=== PATIENT | female | born 2000 | race Caucasian/White ===

== ENCOUNTER 2023-08-23 15:17 | Emergency (ER) | payer BC, SELFPAY ==
[2023-08-23 15:22] VITALS: BP 119/77
[2023-08-23 15:41] LABS: % Basophils 0.4 % (0-2); % Immature Granulocytes 0.4 % (0-0.5); % Lymphocytes 9.3 % (20.5-51.1); % Monocytes 2.8 % (1.7-9.3); % Neutrophils 87.1 % (42.2-75.2); Absolute Monocytes 0.3 10^3/uL (0.1-0.6); Absolute Neutrophils 9.4 10^3/uL (1.4-6.5); Hematocrit 31.1 % (37.0-47.0); Hemoglobin 9.5 g/dL (12.0-16.0); Mean Corp Hgb Conc. 30.5 g/dL (33.0-37.0); Mean Corpuscular Hgb 23.1 pg (27.0-31.0); Mean Corpuscular Volume 75.5 fL (81.0-99.0); Mean Platelet Volume 9.4 fL (7.4-10.4); Nucleated Red Blood Cells % 0 %; Platelet Count 390 10^3/uL (130-400); Red Blood Cell Count 4.12 10^6/uL (4.20-5.40); Red Cell Dist. Width 14.8 % (11.5-14.5); White Blood Cell Count 10.7 10^3/uL (4.8-10.8)
[2023-08-23 15:53] LABS: HCG, Serum Qualitative Screen Negative
[2023-08-23 15:56] LABS: ALT (SGPT) 53 U/L (0-35); AST (SGOT) 50 U/L (14-36); Albumin 3.8 g/dl (3.5-5.0); Alkaline Phosphatase 92 U/L (38-126); Blood Urea Nitrogen 12 mg/dl (7-17); Calcium 8.6 mg/dl (8.4-10.2); Carbon Dioxide 24 mmol/L (22-30); Chloride 107 mmol/L (98-107); Glucose 113 mg/dl (70-99); Lipase 68 U/L (23-300); Potassium 3.9 mmol/L (3.5-5.1); Sodium 135 mmol/L (135-145); Total Bilirubin 0.4 mg/dl (0.2-1.3); Total Protein 6.3 g/dl (6.3-8.2); eGFR > 60.00
[2023-08-23 16:02] LABS: Urine Albumin Negative (Neg - Trace); Urine Bilirubin Negative (Negative); Urine Character Clear (Clear); Urine Color Yellow; Urine Glucose Negative (Negative); Urine Ketone Negative (Negative); Urine Leukocyte Negative (Negative); Urine Nitrite Negative (Negative); Urine Occult Blood 3+ (Negative); Urine Urobilinogen Negative (Neg - 1+)
[2023-08-23 16:14] LABS: Urine White Cell None Seen /HPF (0-5)
--- NOTE | 2023-08-23 19:09 | ED.GENMED ---
History of Present Illness
General
Chief Complaint: Abdominal Symptoms
Time Seen by Provider: 08/23/23 18:43
Travel History
Have you had any contact with someone who has COVID-19?: No
Do you have any symptoms of coronavirus? Fever > 100 degrees, chills, cough, shortness of breath, sore throat, loss of taste or smell, muscle aches, or headache?: No
History of Present Illness
History of Present Illness:
HPI: The patient awoke this morning and shortly thereafter around 9 AM had severe abdominal pain. She states this is associated with her periods. She has had several episodes in the past similar to this. She does have episodes of vomiting and
diarrhea when she gets these episodes. The pain was so severe earlier she nearly passed out and broke onto a sweat. She had an episode when she was in [place] and went to an ED but there was no diagnostic imaging at that time. She reports
that her mother has a history of endometriosis.
EXAM:
GENERAL: The patient appears to be somewhat
HEENT: Moist oral mucosa
CARDIOVASCULAR: No murmurs, normal heart rate and rhythm, No chest wall tenderness
PULMONARY: No respiratory distress, breath sounds are clear and equal
ABDOMEN: Soft with no peritoneal signs, mild lower tenderness
NEUROLOGIC: Excellent strength all extremities, no coordination deficits
PSYCHIATRIC: Appropriate mental status, normal insight and judgement
EXTREMITIES: Nontender, no edema, moves all extremities equally
SKIN: No rash, no lesions
ED COURSE:
645 PM: I initially evaluated patient
NUMBER AND COMPLEXITY OF PROBLEMS ADDRESSED AT THE ENCOUNTER
� Chronic conditions affecting care: Painful periods
� Acute Exacerbation and/or Progression of Chronic Illness: This is a a recurring problem
� Differential Diagnosis includes: Endometriosis, UTI, kidney stone unlikely, dysmenorrhea
AMOUNT AND/OR COMPLEXITY OF DATA TO BE REVIEWED AND ANALYZED
� I performed an independent evaluation of and my interpretation is:
EKG:
CT:
X-rays:
Laboratory Studies: White count is normal at 10.7, hemoglobin is low at 9.5 with no old to compare.
Other: Ultrasound imaging has been ordered and was unremarkable.
� Review of other/old records: The patient has had x-rays here in the past which I have reviewed
� Clinical information was obtained by an independent historian: I spoke to mother at bedside
� Prescriptions/Medications Considered but not given:
� Further testing considered but not performed:
RISK OF COMPLICATIONS AND/OR MORBIDITY OR MORTALITY OF PATIENT MANAGEMENT
� Social determinants of health affecting care: Lives at home
� Discussion with other providers:
� Escalation of care including admission/observation vs risk of discharge considered: Anemia noted with hemoglobin 9.5 with no old to compare. Although she had vomiting and diarrhea earlier, she primarily was concerned of pain
that occurs with her periods and she is currently somewhat anemic. 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
Phy Exam
Physical Exam
Physical Exam:
See HPI
Course
Orders/Labs/Results
Orders:
Orders
08/23/23 15:26
Test Result ONCE
08/23/23 15:32
Complete Blood Count/With Diff Urgent
Urinalysis Reflex To Culture Urgent
Date Specimen was Collected: 08/23/23
Time Specimen was Collected: 15:26
Urine Microscopic Reflex Cult Urgent
08/23/23 15:33
Comprehensive Metabolic Panel Urgent
HCG, Serum Qualitative Screen Urgent
Lipase Urgent
08/23/23 18:55
US Pelvis Only (non-obstetric) Urgent
Comment:
Reason For Exam: heavy periods severe pain anemia
Abnormal Lab Results
08/23/23 08/23/23
15:32 15:33
RBC 4.12 L 10^6/uL
(4.20-5.40)
Hgb 9.5 L g/dL
(12.0-16.0)
Hct 31.1 L %
(37.0-47.0)
MCV 75.5 L fL
(81.0-99.0)
MCH 23.1 L pg
(27.0-31.0)
MCHC 30.5 L g/dL
(33.0-37.0)
RDW 14.8 H %
(11.5-14.5)
Absolute Neuts (auto) 9.4 H 10^3/uL
(1.4-6.5)
Absolute Lymphs (auto) 1.0 L 10^3/uL
(1.2-3.4)
Neutrophils % 87.1 H %
(42.2-75.2)
Lymphocytes % 9.3 L %
(20.5-51.1)
Glucose 113 H mg/dl
(70-99)
AST 50 H U/L
(14-36)
ALT 53 H U/L
(0-35)
Ur Occult Blood Reflex 3+ A
(Negative)
Urine RBC 7-10 A /HPF
(0-2)
08/23/23 15:32
08/23/23 15:33
Vital Signs
Initial and Last Documented VS:
Initial Vital Signs
Temp Pulse Resp BP Pulse Ox
98.0 F 107 16 119/77 98
08/23/23 15:22 08/23/23 15:22 08/23/23 15:22 08/23/23 15:22 08/23/23 15:22
Last Documented Vital Signs
Temp Pulse Resp BP Pulse Ox
98.0 F 73 16 102/66 98
08/23/23 15:22 08/23/23 21:24 08/23/23 15:22 08/23/23 21:24 08/23/23 15:22
*Critical Care Note
Total Time (30-74mins, 75-104mins- exclusive of procedures): Not Applicable
ED Attending Note
-
Portions of this chart may have been created with voice recognition software.� Occasional wrong word or��sound alike� substitutions may have occurred due to the inherent limitations of voice recognition software.
Discharge Plan
Departure
Patient Disposition: Home (Routine Discharge)
Date of Disposition: 08/23/23
Time of Disposition: 21:20
Patient with high blood pressure during this ER visit?: No
Condition: Good
Covid-19: Not Applicable
Discharge Problem:
Menstrual cramps
Instructions: Heavy Periods (DC), Abdominal Pain
Referrals:
NONE,* [Family Provider] -
Activity Restrictions/Additional Instructions:
I recommend you follow-up with your assembly stock supervisor at [facility]. Your white blood cell count is within normal range at 10.7. However your heme level is lower than expected at 9.5. Other basic blood work is unremarkable. test is
negative. Urinalysis does not show any signs of infection. Take report of ultrasound with you as well as the disc for follow-up.
Interventions
Interventions:
*Risk Screen - Suicide Last Done: 08/23/23 19:49
*General Assessment Last Done: 08/23/23 19:49
*Neglect/Abuse Screening Last Done: 08/23/23 19:49
*ED COVID-19 Vaccine History Last Done: 08/23/23 15:22
*Nursing Disposition Last Done: 08/23/23 21:24
QT-Tjxqhe-Ioptijohgm Assessment Last Done: 08/23/23 19:30
Discharge Date and Time
Discharge Date/Time: 08/23/23 21:25
[2023-08-23 21:08] VITALS: BP 102/66
[2023-08-23 21:24] VITALS: BP 102/66
== END 2023-08-23 21:25 | disposition home or self-care (01) ==
LOC: EMR 15:17
PROVIDERS: Emergency Medicine; EMERGENCY PHYSICIAN Emergency Medicine
DX: N94.6 Dysmenorrhea, unspecified (principal); D64.9 Anemia, unspecified
CPT/HCPCS: 99284; 76856; 80053; 81003; 81015; 83690; 84703; 85025

== ENCOUNTER 2024-10-24 22:27 | Inpatient (IN) | payer BC, SELFPAY ==
[2024-10-24 14:34] VITALS: BP 149/81
[2024-10-24 16:27] LABS: % Basophils 0.5 % (0-2); % Eosinophils 0.3 % (0-6); % Immature Granulocytes 0.2 % (0-0.5); % Lymphocytes 15.8 % (20.5-51.1); % Monocytes 3.3 % (1.7-9.3); % Neutrophils 79.9 % (42.2-75.2); Absolute Monocytes 0.2 10^3/uL (0.1-0.6); Absolute Neutrophils 5.1 10^3/uL (1.4-6.5); Hemoglobin 9.5 g/dL (12.0-16.0); Mean Corp Hgb Conc. 29.7 g/dL (33.0-37.0); Mean Corpuscular Hgb 21.8 pg (27.0-31.0); Mean Corpuscular Volume 73.6 fL (81.0-99.0); Mean Platelet Volume 9.1 fL (7.4-10.4); Nucleated Red Blood Cells % 0 %; Platelet Count 399 10^3/uL (130-400); Red Blood Cell Count 4.35 10^6/uL (4.20-5.40); Red Cell Dist. Width 15.8 % (11.5-14.5); White Blood Cell Count 6.3 10^3/uL (4.8-10.8)
[2024-10-24 16:40] LABS: ALT (SGPT) 64 U/L (0-35); AST (SGOT) 45 U/L (14-36); Albumin 4.3 g/dl (3.5-5.0); Alkaline Phosphatase 64 U/L (38-126); Blood Urea Nitrogen 7 mg/dl (7-17); Calcium 9.1 mg/dl (8.4-10.2); Carbon Dioxide 27 mmol/L (22-30); Chloride 110 mmol/L (98-107); Glucose 86 mg/dl (70-99); Sodium 139 mmol/L (135-145); Total Bilirubin 0.9 mg/dl (0.2-1.3); Total Protein 6.7 g/dl (6.3-8.2); eGFR > 60.00
[2024-10-24] MEDS: NSS 1000 IV ×2 (18:39→23:03)
[2024-10-24] MEDS: REGLAN 10 MG IV (18:40)
[2024-10-24] MEDS: BENADRYL 25 MG IV (18:40)
[2024-10-24 18:57] LABS: Amphetamines Negative (Negative); Barbiturates Negative (Negative); Benzodiazepines Negative (Negative); Buprenorphine Negative (Negative); Cocaine Negative (Negative); Marijuana Positive (Negative); Methadone Negative (Negative); Methamphetamines Negative (Negative); Opiates Negative (Negative); Phencyclidine Negative (Negative); Tricyclic Antidepressants Negative (Negative)
[2024-10-24 19:00] LABS: HCG, Serum Qualitative Screen Negative
[2024-10-24 19:06] VITALS: BP 97/60
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
[2024-10-24 20:31] VITALS: BP 97/50
[2024-10-24 21:00] VITALS: BP 100/49
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
[2024-10-24 22:00] VITALS: BP 100/60
[2024-10-24 22:28] LABS: Alcohol None Detected
[2024-10-24 22:51] VITALS: BP 90/59; BP 92/63; BP 93/51; PULSE 69; PULSE 74; BMI 19.2
--- NOTE | 2024-10-24 23:27 | TRANSFER ---
pt arrived from ED via stretcher accompanied by ED staff. pt ambulated from stretcher to bed without assistance. VSS, no complaints at this time. will continue to monitor.
[2024-10-25 03:55] VITALS: BP 89/55
--- NOTE | 2024-10-25 04:41 | PTCARENOTE ---
pt with BP 89/55, HR 81. all other VSS. 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 new orders to increase IVF to 75 ml/hr, up from 60 ml/hr. will continue to monitor pt.
[2024-10-25 06:31] VITALS: BP 93/45
[2024-10-25 07:09] LABS: ALT (SGPT) 63 U/L (0-35); AST (SGOT) 48 U/L (14-36); Albumin 3.2 g/dl (3.5-5.0); Alkaline Phosphatase 70 U/L (38-126); Blood Urea Nitrogen 5 mg/dl (7-17); Calcium 8.4 mg/dl (8.4-10.2); Carbon Dioxide 24 mmol/L (22-30); Chloride 112 mmol/L (98-107); Estimated Creatinine Clearance 119 ml/min; Glucose 95 mg/dl (70-99); Sodium 140 mmol/L (135-145); Total Bilirubin 0.6 mg/dl (0.2-1.3); Total Protein 5.5 g/dl (6.3-8.2); eGFR > 60.00
[2024-10-25 07:11] VITALS: BP 103/57
[2024-10-25 11:44] VITALS: BP 103/58
--- NOTE | 2024-10-25 13:12 | EEG.RPT ---
Electroencephalogram Report
Recording
Date of EE10/25/24
Type of EEG: Routine
Length of EEG recordin minutes
Done with Video Recording: Yes
Patient Status: Inpatient
Recording Conditions: Awake and Drowsy
Hyperventilation Performed: Yes
Photic Stimulation Performed: Yes
Report
LESS THAN 1 HOUR EEG REPORT
LESS THAN 1 HOUR EEG INTERPRETATION:
Unremarkable EEG for age
CLINICAL CORRELATION:
A normal EEG does not rule out a diagnosis of epilepsy. If clinical suspicion for seizure persists, a prolonged recording may be warranted.
Clinical correlation is advised.
METHODS:
A 21 channel digitized electroencephalogram (EEG) was performed using the 10/20 international system of electrode placement and one-lead of ECG recorded. Video was recorded. Persyst quantitative EEG analysis was performed.
ELECTROENCEPHALOGRAPHER IMPRESSION(S):
Quality of study
Good
Background
There was an unremarkable anterior-posterior voltage gradient of alpha frequency.
With eye opening the background activity changed to a low voltage mixture of frequencies.
There were no significant asymmetries of background activity noted.
Sleep
Drowsiness present
Hyperventilation
No driving
Photic Stimulation
No driving
ECG
Normal sinus rhythm
[2024-10-25 13:23] LABS: Total Iron Binding Capacity 371 ug/dl (265-497)
[2024-10-25 13:24] LABS: Iron < 20 ug/dl (37-170)
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
[2024-10-25 15:34] VITALS: BP 111/75
[2024-10-25 15:46] LABS: TSH 1.92 uIU/ml (0.47-4.68)
--- NOTE | 2024-10-25 16:09 | CM ---
Met with patient and her mother who was at bedside to obtain information for assessment. Patient stated that she lives with her mother and father in a single, two story home with one step to enter. She is independent with all of her ADLs, personal
care, dressing and bathing. 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 She drives and can transport herself to her appointments and does her shopping. Patient has never been to a SNF. Never had VN. She denied any DME
in the home.
Patient has a prescription plan and uses, [facility] in [place] for all of her medications.
Patient's PCP is, not listed.
Plan: Case management will continue to follow and assist with discharge planning. Home when stable.
--- NOTE | 2024-10-25 16:14 | W.PN.HOSP.TC ---
Today's Communication/Plan
-
On reviewing workup for syncopal episode which is likely neurogenic/vasovagal.
Could be discharged home if unremarkable MRI and echocardiogram.
Assessment / Plan
Assessment / Plan
Impression:
Syncopal episode with aura.
Chronic microcytic anemia
History of heavy menstrual period's
Plan:
Syncope with aura.
Low suspicion for cardiogenic given no prior history of cardiac disease or arrhythmias.
ECG normal sinus rhythm
Unremarkable telemetry monitoring.
Echo pending.
Neurologic workup with no focal findings per
CTA head and neck negative for obstruction.
EEG unremarkable
Low clinical suspicion for seizures
Suspected migraine with aura.
Urine drug screen positive for marijuana
MRI pending
Chronic microcytic anemia with iron deficiency
History of heavy menstrual periods.
On oral iron supplementation at home.
Anticipated Discharge: Within 24 hours
Subjective/Interval History
-
Date of Service: October 25, 2024
Objective Data
-
Labs:
Laboratory Results
10/25/24
06:11
Sodium 140
Potassium 4.0
Chloride 112 H
Carbon Dioxide 24
BUN 5 L
Creatinine 0.6
Glucose 95
Calcium 8.4
Total Bilirubin 0.6
AST 48 H
ALT 63 H
Alkaline Phosphatase 70
Vital Signs:
Vital Signs
Temp Pulse Resp BP Pulse Ox
98.2 F 63 16 103/58 100
10/25/24 11:44 10/25/24 11:44 10/25/24 11:44 10/25/24 11:44 10/25/24 11:44
I&O
10/24/24 10/25/24 10/26/24
06:59 06:59 06:59
Intake Total 960 / 960
Balance 960 / 960
Physical Exam
-
General: Well Developed and No Apparent Distress
HEENT: Normocephalic, Atraumatic and Moist Mucous Membranes
Respiratory: Clear to Auscultation
Cardiac: Regular Rhythm and S1/S2; Negative Murmur, Rub or Gallop
GI: Soft, Nontender, Nondistended and Normal Bowel Sounds; Negative Organomegaly
Rectal: Deferred by Provider
Musculoskeletal: No Clubbing, No Cyanosis and No Edema
Skin: Negative Rash
Neuro: Nonfocal/Grossly Intact
[2024-10-25] MEDS: NSS IV (18:17)
== END 2024-10-25 19:00 | disposition home or self-care (01) | DRG 312 ==
LOC: 4 EAST ACU 22:27
PROVIDERS: Physician Assistant; Student in an Organized Health Care Education/Training Program; ADMITTING PHYSICIAN Internal Medicine; ATTENDING PHYSICIAN Internal Medicine; CONSULT PHYSICIAN Psychiatry & Neurology Clinical Neurophysiology; EMERGENCY PHYSICIAN Emergency Medicine
DX: R55 Syncope and collapse (principal); G43.109 Migraine with aura, not intractable, without status migrainosus; H54.7 Unspecified visual loss; V89.2XXA Person injured in unspecified motor-vehicle accident, traffic, initial encounter; Y92.410 Unspecified street and highway as the place of occurrence of the external cause
CPT/HCPCS: 70496; 70498; 70551; 80053; 80306; 82077; 83540; 83550; 84443; 84703; 85025; 93005; 93306; 95816; 96361; 96374; 96375; 99285; Q9967